=== PATIENT | female | born 1945 | race Caucasian/White ===

== ENCOUNTER → 2017-09-14 | Outpatient (CLI) | payer MEDICARE ==
[~2017-09-14] MED LIST: AEC81 PO; CHLO25TA3 PO; CLOP75TA14 PO; COLE625 PO; CYAN1TAB19 PO; ESTR10TA VG; FLUV80TA PO; ISOS120T10 PO; LEVO125 PO; LOSA50TA37 PO; METF10004 PO; NITR0.4T50 SL; OMEG1CAP31 PO; OXYC-517 PO; PANT40TA25 PO; POTA25TA13 PO; RANO500T2 PO
== END ==
LOC: RAH 10:28
PROVIDERS: ATTEND Internal Medicine Gastroenterology
DX: R11.2 Nausea with vomiting, unspecified (principal)
CPT/HCPCS: 78264; A9541

== ENCOUNTER 2018-09-08 18:19 | Inpatient (IN) | payer MEDICARE | END 2018-09-10 19:45 | disposition home or self-care (01) | LOC: EDH 18:19 → EDHIP 21:26 → 3DH 09-09 14:44 ==

== ENCOUNTER 2018-09-12 08:29 | Emergency (ER) | payer MEDICARE ==
[~2018-09-12 08:29] MED LIST changes: +AMLO5TAB9 PO; -COLE625 PO; -CYAN1TAB19 PO; +DULO60CA63 PO; -FLUV80TA PO; +GLIP5TAB11 PO; -ISOS120T10 PO; -LOSA50TA37 PO; +LOSA50TA64 PO; +METF-446 PO; -METF10004 PO; -OMEG1CAP31 PO; -POTA25TA13 PO; +ROSU5TAB11 PO; +TOPI100T31 PO
[2018-09-12] MEDS ORDERED: DiphenhydrAMINE HCL 50 MG/ML VIAL ONE (09:38)
[2018-09-12] MEDS ORDERED: DEXAMETHASONE SOD PHOSPHATE 10MG/ML 1ML VIAL ONE (09:38)
[2018-09-12] MEDS ORDERED: FAMOTIDINE/PF 20 MG/2 ML VIAL IV ONE (09:38)
== END 2018-09-12 10:55 | disposition home or self-care (01) ==
LOC: EDH 08:29
DX: L50.9 Urticaria, unspecified (principal); G43.909 Migraine, unspecified, not intractable, without status migrainosus; E11.43 Type 2 diabetes mellitus with diabetic autonomic (poly)neuropathy; K31.84 Gastroparesis; I25.10 Atherosclerotic heart disease of native coronary artery without angina pectoris; I25.2 Old myocardial infarction; Z88.2 Allergy status to sulfonamides; Z91.041 Radiographic dye allergy status; Z90.49 Acquired absence of other specified parts of digestive tract; Z95.818 Presence of other cardiac implants and grafts
CPT/HCPCS: 96374; 96375; 99283; J1100; J1200; J3490

== ENCOUNTER → 2021-09-03 | Outpatient (CLI) | payer MEDICARE ==
[~2021-09-03] MED LIST changes: +AMLO-257 PO; -AMLO5TAB9 PO; -DULO60CA63 PO; +DULO60CA64 PO; -OXYC-517 PO; +OXYC1TAB12 PO; -PANT40TA25 PO; +PANT40TA54 PO; -ROSU5TAB11 PO; +ROSU5TAB12 PO
== END | disposition home or self-care (01) ==
LOC: RAH 09:34
PROVIDERS: ATTEND Internal Medicine
DX: K57.30 Diverticulosis of large intestine without perforation or abscess without bleeding (principal); K59.00 Constipation, unspecified; Z90.49 Acquired absence of other specified parts of digestive tract; Z90.710 Acquired absence of both cervix and uterus; Z98.890 Other specified postprocedural states
CPT/HCPCS: 74176